=== PATIENT | female | born 1995 | race Caucasian/White ===

== ENCOUNTER → 2020-11-21 07:52 | Outpatient (CLI) | payer OTHER, SELFPAY ==
--- NOTE | ~2020-11-21 | US_ITS ---
US abdomen limited INDICATION: Right upper quadrant pain PROCEDURE: Realtime right upper abdominal ultrasound. COMPARISON: No prior studies for comparison. FINDINGS: The pancreas is normal without focal mass or pancreatic ductal dilation. Liver echotexture is normal without focal mass or intrahepatic biliary dilatation. There is normal directional flow i n the portal vein. The gallbladder is normal without stones, gallbladder wall thickening or pericholecystic fluid. Comm on bile duct measures 4 mm. No sonographic Proctor's sign. IMPRESSION: 1: Normal limited abdominal ultrasound. Reviewed, dictated and finalized at location A.
== END ==
PROVIDERS: PCP Nurse Practitioner Family; Visit Provider Nurse Practitioner Family
DX: R10.11 Right upper quadrant pain (principal)
CPT/HCPCS: 76705

== ENCOUNTER 2020-12-22 15:22 | Outpatient (CLI) | payer OTHER, SELFPAY ==
[2020-12-22 15:43] LABS: Hematocrit 40.4 % (37.0-47.0); Hemoglobin 13.4 g/dL (12.0-15.0); Mean Corpuscular HGB Conc 33.2 g/dl (32-36); Mean Corpuscular Hemoglobin 29.9 pg (26-34); Mean Corpuscular Volume 90.2 fl (80-100); Mean Platelet Volume 10.3 fl (7.4-10.4); Platelet Count Result 369 k/mm3 (150-375); Red Blood Count 4.48 M/mm3 (4.2-5.4); Red Cell Distribution Width 12.6 % (11.5-14.5); White Blood Count 5.7 K/mm3 (4.5-10.0)
[2020-12-22 21:41] LABS: IFOB Positive Control Positive; Immunochemical Fecal Occult Bl Positive (N)
== END 2020-12-22 15:23 | disposition home or self-care (01) ==
PROVIDERS: PCP Nurse Practitioner Family; Visit Provider Surgery
DX: K62.5 Hemorrhage of anus and rectum (principal)
CPT/HCPCS: 36415; 82274; 85027

== ENCOUNTER 2020-12-31 07:59 | Outpatient (CLI) | payer OTHER, SELFPAY ==
--- NOTE | ~2020-12-31 | NM_ITS ---
HEPATOBILIARY SCAN Procedure: Hepatobiliary scan performed following IV administration 4.7 mCi Tc 99m Choletec. At 60 m inutes 1.4 mcg CCK administered IV for evaluation of gallbladder ejection fraction. Indication:Right upper quadrant pain Comparison: Ultrasound dated 11/21/2020 Findings: There is normal radiotracer uptake in the liver parenchyma with prompt excretion into the b iliary tract. Gallbladder visualized at 15 minutes. Small bowel visualized at 20 minutes. Normal g allbladder ejection fraction measures 67% (normal 10-90%, but most patients with gallbladder dysfunct ion have GBEF of less than 35%) Impression: 1: Normal hepatobiliary scan. Reviewed, dictated and finalized at location A. Impression: 1: Normal hepatobiliary scan.
== END 2020-12-31 08:00 | disposition home or self-care (01) ==
PROVIDERS: PCP Nurse Practitioner Family; Visit Provider Surgery
DX: R10.11 Right upper quadrant pain (principal)
CPT/HCPCS: 78227; A9537; J2805

== ENCOUNTER 2021-01-14 06:47 | Day surgery (SDC) | payer OTHER, SELFPAY ==
[2021-01-08 10:47] VITALS: BMI 28.2
[2021-01-14 12:07] VITALS: BP 128/87; PULSE 110; RESP 16; TEMP 36.4; O2SAT 98
[2021-01-14] MEDS: LACTATED RINGERS 1,000 ML 150 ML IV CONT (12:11)
--- NOTE | 2021-01-14 12:19 | WPDANESEPPF ---
Anes - Initial Pre Proc Eval Procedure: Operation Date: 01/14/21 13:00 Proposed Procedures p Esophagogastroduodenoscopy & Colonoscopy - Angel aOkes MD Date/Time: 01/14/21 12:19 Surgeon: Angel Oakes MD Pre Op Diagnosis: rectal bleed, right upper quadrant pain, nausea, Patient Data Age: 25 Gender: F Height: 1.57 m Weight: 70.7 kg Last Vital Signs Temp 36.4 C 01/14/21 12:07 Pulse 110 H 01/14/21 12:07 Resp 16 01/14/21 12:07 BP 128/87 01/14/21 12:07 Pulse Ox 98 01/14/21 12:07 Allergies Allergy/AdvReac Type Severity Reaction Status Date / Time No Known Allergies Allergy Verified 01/14/21 12:04 Home Medications Medication Instructions Recorded Confirmed Type albuterol sulfate 90 mcg/actuation 1 puff INHALATION Q4H PRN #18 gm 08/21/19 01/08/21 Rx aerosol inhaler alprazolam 0.25 mg tablet 0.25 mg PO DAILY PRN #20 tablet 08/21/19 01/08/21 Rx glucagon (human recombinant) 1 mg 1 mg SUB-Q Q20M PRN #1 each 09/15/19 01/08/21 Rx solution for injection subcutaneous insulin pump #1 each 12/17/19 01/06/21 History blood sugar diagnostic #300 ea 05/14/20 01/06/21 Rx norethindrone 1 mg-ethinyl 1 tablet PO DAILY 10/21/20 01/08/21 History estradiol 10 mcg (24)-iron 10 mcg(2) tablet escitalopram oxalate 20 mg tablet 10 mg PO DAILY tablet 11/12/20 01/08/21 History insulin aspart U-100 100 unit/mL 60 - 80 unit CONTINUOUS 11/12/20 01/08/21 Rx subcutaneous solution SUBCUTANEOUS INFUSION DAILY 90 Days #70 ml insulin degludec 200 unit/mL (3 24 unit SUBCUT QHS 14 Days #1.68 ml 11/12/20 01/08/21 Rx mL) subcutaneous pen pen needle, diabetic 32 gauge x #100 ea 11/12/20 01/06/21 Rx insulin aspart U-100 100 unit/mL 40 unit SUBCUT DAILY 30 Days #12 ml 11/13/20 01/08/21 Rx (3 mL) subcutaneous pen levothyroxine 125 mcg tablet 62.5 mcg PO DAILY #90 tablet 11/26/20 01/08/21 Rx clomipramine 75 mg PO DAILY 01/08/21 01/08/21 History glycopyrrolate 1 mg PO TID PRN 01/08/21 01/08/21 History Patient hx anesthesia problems: none Family hx anesthesia problems: none PMFSH Past Medical History Medical History ADHD Allergic rhinitis Anxiety Exercise-induced asthma Hyperhidrosis Hypothyroidism, acquired IBS (irritable bowel syndrome) Overweight (BMI 25.0-29.9) Thyroid disease Type 1 diabetes mellitus without complications Surgical History Surgical History H/O wisdom tooth extraction (~2011) History of appendectomy (~2015) Family History Family History Other Asthma Breast cancer Family history of arthritis Family history of lung cancer Family history of malignant neoplasm of breast Family history of malignant neoplasm of breast in first degree relative Family history of migraine headaches Family history of osteoporosis Family history of thyroid disease Hypertension Osteoporosis Social History Social History Smoking status: Never smoker Alcohol intake: current Drinks per week: 5 Substance use: never Living arrangements: with family Additional occupation/education comments: Teacher Gender identity (if verbalized by the patient): Female Spiritual care concerns: No Anes - Eval Final PreProcedure Day of Procedure 01/14/21 12:19 Patient weight: overweight Heart: regular rate and rhythm Lungs: clear to auscultation Airway: Mallampati scale class II Neurological: alert and oriented Last oral intake: >/= 8 hours ASA classification: II Emergent: no Anesthetic plan: proceed Anesthesia type and monitoring: general GIVS and standard monitoring Informed Consent: The patient's anesthetic plan and its attendant risks and benefits were discussed with the patient/family/POA. Questions were solicited and answers provided to the satisfa
--- NOTE | 2021-01-14 13:13 | PM.HPGS ---
History of Present Illness History of Present Illness Consent: Risks, benefits, and alternatives have been discussed and questions answered. Patient agrees to proceed with procedure. Chief complaint: rectal bleed, right upper quadrant pain, nausea, Narrative: Roro Yeboah is a 25 year old female with 7 from epigastric and right upper quadrant pain. Gallbladder studies were negative. At times pain is sharp but she has an almost constant dull discomfort as well. She has been very nauseated with that. Lately she has had a change in bowel habits has seen some red blood in her stools. Occasionally she will have no bowel movement for 6 days or so Review of Systems Review of Systems: All systems reviewed & are unremarkable except as noted in HPI and below PMFSH Past Medical History Medical History ADHD Allergic rhinitis Anxiety Exercise-induced asthma Hyperhidrosis Hypothyroidism, acquired IBS (irritable bowel syndrome) Overweight (BMI 25.0-29.9) Thyroid disease Type 1 diabetes mellitus without complications Surgical History Surgical History H/O wisdom tooth extraction (~2011) History of appendectomy (~2015) Family History Family History Other Asthma Breast cancer Family history of arthritis Family history of lung cancer Family history of malignant neoplasm of breast Family history of malignant neoplasm of breast in first degree relative Family history of migraine headaches Family history of osteoporosis Family history of thyroid disease Hypertension Osteoporosis Social History Social History Smoking status: Never smoker Alcohol intake: current Drinks per week: 5 Substance use: never Living arrangements: with family Additional occupation/education comments: Teacher Gender identity (if verbalized by the patient): Female Spiritual care concerns: No Meds Home Medications and Allergies Home Medications Medication Instructions Recorded Confirmed Type albuterol sulfate 90 mcg/actuation 1 puff INHALATION Q4H PRN #18 gm 08/21/19 01/08/21 Rx aerosol inhaler alprazolam 0.25 mg tablet 0.25 mg PO DAILY PRN #20 tablet 08/21/19 01/08/21 Rx glucagon (human recombinant) 1 mg 1 mg SUB-Q Q20M PRN #1 each 09/15/19 01/08/21 Rx solution for injection subcutaneous insulin pump #1 each 12/17/19 01/06/21 History blood sugar diagnostic #300 ea 05/14/20 01/06/21 Rx norethindrone 1 mg-ethinyl 1 tablet PO DAILY 10/21/20 01/08/21 History estradiol 10 mcg (24)-iron 10 mcg(2) tablet escitalopram oxalate 20 mg tablet 10 mg PO DAILY tablet 11/12/20 01/08/21 History insulin aspart U-100 100 unit/mL 60 - 80 unit CONTINUOUS 11/12/20 01/08/21 Rx subcutaneous solution SUBCUTANEOUS INFUSION DAILY 90 Days #70 ml insulin degludec 200 unit/mL (3 24 unit SUBCUT QHS 14 Days #1.68 ml 11/12/20 01/08/21 Rx mL) subcutaneous pen pen needle, diabetic 32 gauge x #100 ea 11/12/20 01/06/21 Rx /32 insulin aspart U-100 100 unit/mL 40 unit SUBCUT DAILY 30 Days #12 ml 11/13/20 01/08/21 Rx (3 mL) subcutaneous pen levothyroxine 125 mcg tablet 62.5 mcg PO DAILY #90 tablet 11/26/20 01/08/21 Rx clomipramine 75 mg PO DAILY 01/08/21 01/08/21 History glycopyrrolate 1 mg PO TID PRN 01/08/21 01/08/21 History Allergies Allergy/AdvReac Type Severity Reaction Status Date / Time No Known Allergies Allergy Verified 01/14/21 12:04 Vital Signs Vital Signs - 24 hr 01/14/21 12:07 Temperature 36.4 C Pulse Rate 110 H Respiratory Rate 16 Blood Pressure 128/87 Pulse Oximetry 98 Exam Resp: Auscultation: clear to auscultation bilaterally Cardio: Rate: regular rate Rhythm: regular rhythm GI: GI Palp: Yes Soft to palpation and No Tenderness to palpation present (GI) Assessment
[2021-01-14 13:38] LABS: Glucose Point of Care 209 mg/dl (65-105)
[2021-01-14 13:45] VITALS: BP 106/69; PULSE 85; RESP 28; O2SAT 100
[2021-01-14 13:55] VITALS: BP 113/68; PULSE 75; RESP 17; O2SAT 100
[2021-01-14 14:05] VITALS: BP 119/75; PULSE 72; RESP 19; O2SAT 100
[2021-01-14 14:15] LABS: Glucose Point of Care 192 mg/dl (65-105)
== END 2021-01-14 14:25 | disposition home or self-care (01) ==
PROVIDERS: PCP Nurse Practitioner Family; Visit Provider Internal Medicine Gastroenterology
PROC: 0DJ08ZZ Inspection of Upper Intestinal Tract, Via Natural or Artificial Opening Endoscopic (ICD-10-PCS; CPT 43235; principal; 2021-01-14 13:00)
DX: R19.4 Change in bowel habit (principal); K21.9 Gastro-esophageal reflux disease without esophagitis; E10.9 Type 1 diabetes mellitus without complications; E03.9 Hypothyroidism, unspecified; K58.9 Irritable bowel syndrome, unspecified; F90.9 Attention-deficit hyperactivity disorder, unspecified type; F41.9 Anxiety disorder, unspecified; Z79.51 Long term (current) use of inhaled steroids; Z79.4 Long term (current) use of insulin; Z96.41 Presence of insulin pump (external) (internal)
CPT/HCPCS: 45378; 43239; 82948; 87081; 88305; J7120

== ENCOUNTER 2023-09-27 11:07 | Outpatient (RCR) | payer OTHER, SELFPAY ==
[2023-09-27 12:47] VITALS: BMI 28.7
[2023-09-27 12:50] VITALS: BMI 28.7
== END 2023-12-12 10:42 | disposition home or self-care (01) ==
LOC: ANHDMC 11:07
PROVIDERS: PCP Family Medicine; Visit Provider Nurse Practitioner Family
DX: E10.649 Type 1 diabetes mellitus with hypoglycemia without coma (principal); Z71.3 Dietary counseling and surveillance
CPT/HCPCS: 97802